=== PATIENT | female | born 1995 | race African-American/Black ===

== ENCOUNTER 2019-06-19 12:52 | Emergency (ER) | payer OTHER ==
[2019-06-19 12:58] VITALS: BP 111/72; PULSE 126; TEMP 97.9; BMI 21.9
[2019-06-19] MEDS ORDERED: ALBUTEROL SO4 2.5/IPRATROPIUM 0.5 INH SOL 3 ML VIAL.NEB. NEB ONE ×2 (12:58→13:08)
--- NOTE | 2019-06-19 13:03 | PDOC ---
History of Present Illness - General Chief Complaint: Respiratory Stated Complaint: FLU LIKE SYMPTOMS Time Seen by Provider: 06/19/19 12:58 - History of Present Illness Initial Comments: 06/19/19 13:00 CHIEF COMPLAINT: cough, asthma exacerbation HISTORY OF PRESENT ILLNESS: 24 yo F with hx of asthma presents to [facility] with cough x 3-4 days with wheezing today. Patient states she has been using her inhaler without relief. Denies fever, vomiting, diarrhea. No recent travel or sick contacts. PAST MEDICAL HISTORY: asthma FAMILY HISTORY: Denies SOCIAL HISTORY: Denies tobacco, alcohol, illicit drug use. SURGICAL HISTORY: Denies ALLERGIES: No known drug allergies REVIEW OF SYSTEMS General/Constitutional: Denies fever or chills. Denies weakness, weight change. HEENT: Denies change in vision. Denies ear pain or discharge. Denies sore throat. Cardiovascular: Denies chest pain or shortness of breath. Respiratory: Cough, wheezing. Gastrointestinal: Denies nausea, vomiting, diarrhea or constipation. Denies rectal bleeding. Genitourinary: Denies dysuria, frequency, or change in urination. Musculoskeletal: Denies joint or muscle swelling or pain. Denies neck or back pain. Skin and breasts: Denies rash or easy bruising. Neurologic: Denies headache, vertigo, loss of consciousness, or loss of sensation. Psychiatric: Denies depression or anxiety. PHYSICAL EXAM General Appearance: Well-appearing, appropriately dressed. No apparent distress , no intoxication. HEENT: EOMI, PERRLA, normal ENT inspection, normal voice, TMs normal, pharynx normal. No conjunctival pallor. No photophobia, scleral icterus. Neck: Supple. Trachea midline. No tenderness, rigidity, carotid bruit, stridor , lymphadenopathy, or thyromegaly. Respiratory/Chest: Intermittent wheezing throughout b/l lungs, persistent dry cough. No shortness of breath, chest tenderness, respiratory distress, accessory muscle use. No crackles, rales, rhonchi, stridor, dullness Cardiovascular: RRR. S1, S2. No JVD, murmur, bradycardia, tachycardia. Gastrointestinal/Abdominal: Normal bowel sounds. Abdomen soft, non-distended. No tenderness or rebound tenderness. No organomegaly, pulsatile mass, guarding , hernia, hepatomegaly, splenomegaly. Musculoskeletal/Extremities: Normal inspection. FROM of all extremities, normal capillary refill. Pelvis Stable. No CVA tenderness. No tenderness to extremities, pedal edema, swelling, erythema or deformity. Integumentary: Appropriate color, dry, warm. 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 Fully oriented, alert. Appropriate mood/affect. Motor strength 5/5. No appreciable EOM palsy, facial droop or sensory deficit. Past History - Past Medical History Allergies/Adverse Reactions: Allergies Allergy/AdvReac Type Severity Reaction Status Date / Time No Known Allergies Allergy Verified 06/19/19 12:57 Home Medications: Ambulatory Orders Albuterol 0.083% Nebulizer Mahnaz [Ventolin 0.083% Nebulizer Soln -] 1 neb NEB Q6H #30 vial 06/19/19 Benzonatate [Tessalon Pearls -] 100 mg PO TID #21 capsule 06/19/19 Nebulizer [Truneb Nebulizer] 1 each ASDIR #1 each 06/19/19 Asthma: Yes COPD: No - Psycho Social/Smoking Cessation Hx Smoking History: Never smoked *Physical Exam - Vital Signs Last Vital Signs Temp Pulse Resp BP Pulse Ox 97.9 F 126 H 18 111/72 100 06/19/19 12:55 06/19/19 12:55 06/19/19 12:55 06/19/19 12:55 06/19/19 12:55 Medical Decision Making - Medical Decision Making 06/19/19 13:08 24 yo F with hx of asthma presents to [facility] with cough x 3-4 days with wheezing today. -duoneb x 2 -prednisone Patient lungs ctab after administration of nebs but patient continues to c/o of chest tightness. -CXR Will reassess. 06/19/19 14:00 Patient reports feeling better after prednisone. Lungs continue to be ctab. No respiratory distress. Discharge - Discharge Information Problems reviewed: Yes Clinical Impression/Diagnosis: Asthma exacerbation Qualifiers: Asthma severity: mild Asthma persistence: intermittent Qualified Code(s): J45.21 - Mild intermittent asthma with (acute) exacerbation URI (upper respiratory infection) Qualifiers: URI type: unspecified viral URI Qualified Code(s): J06.9 - Acute upper respiratory infection, unspecified Disposition: HOME - Admission No - Additional Discharge Information Prescriptions: Albuterol 0.083% Nebulizer Mahnaz [Ventolin 0.083% Nebulizer Soln -] 1 neb NEB Q6H #30 vial Benzonatate [Tessalon Pearls -] 100 mg PO TID #21 capsule Nebulizer [Truneb Nebulizer] 1 each ASDIR #1 each - Follow up/Referral Referrals: Louis Watters MD [Staff Physician] - Anuj Smith MD [Staff Physician] - - Patient Discharge Instructions Patient Printed Discharge Instructions: DI for Viral Upper Respiratory Infection -- Adult - Post Discharge Activity Work/Back to School Note: Back to Work
[2019-06-19] MEDS ORDERED: predniSONE 20 MG TABLET (UD) ONE (13:05)
[2019-06-19] MEDS ORDERED: predniSONE 20 MG TABLET (UD) PO ONE (13:06)
== END 2019-06-19 14:17 | disposition home or self-care (01) ==
LOC: JERFT 12:52
PROC: 3E0F7GC Introduction of Other Therapeutic Substance into Respiratory Tract, Via Natural or Artificial Opening (ICD-10-PCS; principal; 2019-06-19)
DX: J45.21 Mild intermittent asthma with (acute) exacerbation (principal); J06.9 Acute upper respiratory infection, unspecified
CPT/HCPCS: 71046-TC-FY; 94640; 99281-25